=== PATIENT | male | born 1970 | race Caucasian/White ===

== ENCOUNTER 2024-05-19 14:34 | Emergency (ER) | payer SELFPAY ==
[~2024-05-19] VITALS: Ht 180.3 cm; Wt 91.0 kg
[2024-05-19 14:39] VITALS: O2SAT 98
[2024-05-19 15:29] LABS: CLARITY URINE CLEAR (CLEAR); COLOR URINE YELLOW (YELLOW); GLUCOSE URINE NEGATIVE (NEGATIVE); KETONES URINE NEGATIVE (NEGATIVE); LEUKOCYTE ESTERASE URINE NEGATIVE (NEGATIVE); NITRITE URINE NEGATIVE (NEGATIVE); OCCULT BLOOD URINE NEGATIVE (NEGATIVE); PROTEIN URINE NEGATIVE (NEGATIVE); SPECIFIC GRAVITY URINE 1.008 (1.005-1.030)
[2024-05-19 15:46] LABS: *AMPHETAMINES SCREEN URINE NEGATIVE (NEGATIVE); *BARBITURATES SCREEN URINE NEGATIVE (NEGATIVE); *BENZODIAZEPINES SCREEN URINE NEGATIVE (NEGATIVE); *COCAINE SCREEN URINE NEGATIVE (NEGATIVE); CANNABINOID URINE SCREEN NEGATIVE (NEGATIVE); ECSTASY MDMA SCREEN URINE NEGATIVE (NEGATIVE); METHADONE URINE SCREEN NEGATIVE (NEGATIVE); OPIATES URINE SCREEN NEGATIVE (NEGATIVE); PHENCYCLIDINE URINE SCREEN NEGATIVE (NEGATIVE)
[2024-05-19 15:48] VITALS: BP 134/62; PULSE 88; RESP 18; TEMP 98.4
[2024-05-19 15:55] LABS: BACTERIA URINE NONE SEEN; RBC URINE NONE SEEN /hpf (0-2); SQUAMOUS EPITHELIAL CELL URINE RARE /lpf (RARE/1+); WBC URINE NONE SEEN /hpf (0-2)
[2024-05-19] MEDS ORDERED: HALOPERIDOL LACTATE 5MG/ML VIAL IM ONE (16:45)
[2024-05-19] MEDS ORDERED: DIPHENHYDRAMINE 50MG/ML VIAL IM ONE (16:45)
[2024-05-19] MEDS ORDERED: LORAZEPAM 2MG/ML INJ IM ONE (16:45)
== END 2024-05-19 17:06 | disposition left against medical advice (07) ==
LOC: ER 15:07
DX: F20.9 Schizophrenia, unspecified (principal)
CPT/HCPCS: 80305; 81003; 99283; J1200; J1630; J2060; Z7610

== ENCOUNTER 2024-05-20 01:42 | Emergency (ER) | payer SELFPAY ==
[~2024-05-20] VITALS: Ht 177.8 cm; Wt 90.0 kg
[2024-05-20 01:44] VITALS: BP 170/98; PULSE 86; RESP 18; TEMP 98.4; O2SAT 97
== END 2024-05-20 05:13 | disposition left against medical advice (07) ==
LOC: ER 01:42
DX: Z76.0 Encounter for issue of repeat prescription (principal); Z53.21 Procedure and treatment not carried out due to patient leaving prior to being seen by health care provider